=== PATIENT | male | born 1990 | race African-American/Black ===

== ENCOUNTER 2019-02-23 01:29 | Emergency (ER) | payer SELFPAY ==
--- NOTE | 2019-02-23 01:37 | PDOC ---
History of Present Illness - General Stated Complaint: FOUND LYING ON THE STREET Time Seen by Provider: 02/23/19 01:32 History Source: Patient Exam Limitations: No Limitations - History of Present Illness Initial Comments: 02/23/19 01:33 This is a 28-year-old male brought in by the EMS for evaluation. As per the EMS people patient was lying on the ground. When they approached him he said he was lying on the street but hadn't fallen or injured himself. Police felt that he initially was confused however in talking to him here it appears that he most likely did not want anyone to know why he was in the area and he most likely is undomiciled as the most recent address that the police were able to find [place]. Patient denies any headache, nausea, vomiting, diarrhea, chest pain, shortness of breath. Patient denies any complaints whatsoever. Patient said he lives in the area but will not give an address in the area. It is unclear whether he actually lives in the area or not. Patient denies any recent drug use, alcohol use or any complaints at this time. Patient initially refused to be evaluated in the agreed to be evaluated. Allergies: as per nursing notes Past Medical History: none Social history: Lives with family. No smoking. No alcohol. No illicit drugs. Surgical history: None General: No fevers or chills, no weakness, no weight loss HEENT: No change in vision. No sore throat,. No ear pain CardioVascular: no chest discomfort. No shortness of breath Respiratory:No cough, or wheezing. Gastrointestinal: no nausea, vomiting, diarrhea or constipation, No rectal bleeding Genitourinary: No dysuria, hematuria, or frequency Musculoskeletal: No joint or muscle pain or swelling Neurologic: No headache, vertigo, dizziness or loss of consciousness Psychiatric: nor depression Skin: No rashes or easy bruising Endocrine: no increased thirst or abnormal weight change Allergic: no skin or latex allergy All other systems reviewed and normal Exam: General: Well-nourished well-developed individual, no acute distress HEENT: Throat: Normal, tonsils normal, no erythema or exudate Neck: Supple, no meningeal signs, no lymphadenopathy Eyes::Pupils equal reactive and round, extraocular motion intact Chest: Nontender to palpation Cardiac: S1-S2 normal, regular rate and rhythm, no murmurs rubs or gallops Respiratory: Lungs clear to auscultation bilateral Abdomen: Soft, nondistended, normal bowel sounds, there is no tenderness on palpation diffusely Extremities: Warm, dry, no cyanosis, clubbing, or edema Skin: No rashes Neuro: Alert and oriented x3, CN II - XII intact, nonfocal exam with normal strength, normal sensation, normal reflexes, normal gait, Psych: Normal mood and affect Assessment and plan: This is a 28-year-old male who was brought in by police for possible altered mental status however patient is alert and oriented 3 he is without complaints he is vague as to where he lives most likely because he is undomiciled and does not want to be in the system. Patient discharged and told to go home. Past History - Past Medical History Allergies/Adverse Reactions: Allergies Allergy/AdvReac Type Severity Reaction Status Date / Time No Known Allergies Allergy Verified 02/23/19 01:36 Home Medications: Ambulatory Orders NK [No Known Home Medication] 02/23/19 *DC/Admit/Observation/Transfer Diagnosis at time of Disposition: Examination - Discharge Dispostion Disposition: HOME Condition at time of disposition: Stable Decision to Admit order: No - Referrals - Patient Instructions Additional Instructions: Return to the emergency department immediately with ANY new, persistent or worsening symptoms. Continue any medications as previously prescribed by your physician. You should follow up with your primary doctor as soon as possible regarding today's emergency department visit. . Please make sure your doctor reviews the results of your emergency evaluation. Thank you for coming to the Emergency Department today for your care. It was a pleasure to see you today. Please note that your evaluation is INCOMPLETE until you follow-up with your doctor. - Post Discharge Activity
[2019-02-23 01:40] VITALS: BP 110/74; PULSE 68; TEMP 98.2; BMI 28.3
== END 2019-02-23 02:11 ==
LOC: FER 01:29
DX: Z00.00 Encounter for general adult medical examination without abnormal findings (principal)
CPT/HCPCS: 99281-25

== ENCOUNTER 2019-02-27 15:58 | Emergency (ER) | payer SELFPAY ==
[2019-02-27 16:07] VITALS: BP 108/60; PULSE 80; TEMP 98.3; BMI 28.0
--- NOTE | 2019-02-27 16:11 | PDOC ---
History of Present Illness - General Chief Complaint: Heat Exhaustion Stated Complaint: AMS Time Seen by Provider: 02/27/19 16:10 - History of Present Illness Initial Comments: Butch Sheehan is a 28yo homeless man with no known medical history who was brought to the ED by EMS after he was found sleeping outside behind a school. Mr Sheehan currently has no complaints, and he states that he was sleeping outside because he had no other place to go. He currently reports that he is "just chillin" and that he does not need to be in the hospital. He denies fevers , chills, any pain, poor PO intake, or drug/alcohol use. Past History - Past Medical History Allergies/Adverse Reactions: Allergies Allergy/AdvReac Type Severity Reaction Status Date / Time No Known Allergies Allergy Verified 02/27/19 16:08 Home Medications: Ambulatory Orders NK [No Known Home Medication] 02/23/19 COPD: No - Suicide/Smoking/Psychosocial Hx Smoking History: Never smoked Have you smoked in the past 12 months: Yes Number of Cigarettes Smoked Daily: 5 'Breaking Loose' booklet given: 02/23/19 Hx Alcohol Use: No Drug/Substance Use Hx: No Review of Systems - Review of Systems Comments:: General: No fevers, no chills, no weight or appetite change, no malaise HEENT: No changes in vision, no changes in hearing, no congestion, no sore throat CV: No chest pain, no palpitations, no LE edema Pulm: No SOB, no cough, no wheezing GI: No nausea or vomiting, no change in bowel habits, no melena : No frequency, no urgency, no dysuria Musc: No back pain, no joint swelling, no recent injury Skin: No rash, no lesions, no erythema Endo: No excessive thirst, no heat/cold intolerance Heme: No unusual bruising or bleeding, no swollen glands Neuro: No syncope, no numbness/tingling, no focal weakness Vasc: No claudication Psych: No recent change in mood, no SI or HI *Physical Exam - Vital Signs Last Vital Signs Temp Pulse Resp BP Pulse Ox 98.3 F 80 16 108/60 95 02/27/19 16:04 02/27/19 16:04 02/27/19 16:04 02/27/19 16:04 02/27/19 16:04 - Physical Exam Comments: General: Comfortable, no acute distress, clothing dirty HEENT: PERRL, EOMI, MMM, voice normal, normal neck ROM Cards: RRR, no murmur appreciated Pulm: Comfortable on room air, clear to auscultation bilaterally Abd: Soft, nontender, nondistended : No CVA tenderness Ext: Atraumatic. No LE edema. ROM intact. Thick calluses on b/l feet Vasc: Extremities WWP Skin: Normal color, no rashes or lesions Neuro: A&Ox3, CN grossly intact, normal speech, motor/sensory grossly intact and symmetric Psych: Mood appropriate to situation Medical Decision Making - Medical Decision Making 02/27/19 16:22 Butch Sheehan is a 28yo homeless man with no known medical history who was brought to the ED by EMS after he was found sleeping outside behind a school. He has no complaints, normal vitals, and no concerning findings on physical exam. - Appears well, no sign of elevated temperature despite temps outside - Due to heat, will have social work see Mr Sheehan prior to discharge to recommend shelters 02/27/19 16:33 - Provided information on homeless shelters by social work. - Will discharge Discussed with Dr Davidson. Ria Leon PGY2 *DC/Admit/Observation/Transfer Diagnosis at time of Disposition: Homeless - Discharge Dispostion Disposition: HOME Condition at time of disposition: Stable Decision to Admit order: No - Referrals Referrals: [facility] [place] [facility] [place] [Provider Group] - Patient Instructions Printed Discharge Instructions: DI for Heat Exhaustion and Heat Stroke Additional Instructions: Discharge Instructions: You were seen in the ED after being found sleeping outside. It is strongly recommended that you present to a homeless [place] [facility] care facility to stay out of the heat. Please refer to the paperwork provided by the community mental health social worker. You have been referred to the [facility] clinic to establish medical care. Please make an appointment within the next 1-2 weeks. - Post Discharge Activity
--- NOTE | 2019-02-27 16:31 | PDOC ---
Documentation entered by Mehnaz Jones SCRIBE, acting as scribe for Deborah Davidson MD. Deborah Davidson MD: This documentation has been prepared by the alexibeRobert Adrianna, SCRIBE, under my direction and personally reviewed by me in its entirety. I confirm that the documentation accurately reflects all work, treatment, procedures, and medical decision making performed by me. Attending Attestation - Resident Resident Name: CarolynRia - ED Attending Attestation I have performed the following: I have examined & evaluated the patient, The case was reviewed & discussed with the resident, I agree w/resident's findings & plan, Exceptions are as noted - HPI HPI: The patient is a 28 year old male, with no significant PMH, who was BIBA found lying on the ground outside. Patient states he was sleeping behind a school because he had no other place to go. He denies any complaints while in the ED. Allergies: NKA, NKDA Surgical History: None reported Social History: Homeless. Denies EtOH or illicit drug use 02/27/19 16:32 - Physicial Exam PE: GENERAL: Awake, alert, and fully oriented, in no acute distress HEAD: No signs of trauma EYES: PERRLA, EOMI, sclera anicteric, conjunctiva clear ENT: Auricles normal inspection, hearing grossly normal, nares patent, oropharynx clear without exudates. Moist mucosa NECK: Normal ROM, supple, no lymphadenopathy, JVD, or masses LUNGS: Breath sounds equal, clear to auscultation bilaterally. No wheezes, and no crackles HEART: Regular rate and rhythm, normal S1 and S2, no murmurs, rubs or gallops ABDOMEN: Soft, nontender, normoactive bowel sounds. No guarding, no rebound. No masses EXTREMITIES: Normal range of motion, no edema. No clubbing or cyanosis. No cords, erythema, or tenderness NEUROLOGICAL: Cranial nerves II through XII grossly intact. Normal speech, normal gait. Motor and sensation intact SKIN: Warm, Dry, normal turgor, no rashes or lesions noted. - Medical Decision Making Pt denies any complaints at [facility], brought in by EMS after found outside. However, he is undomiciled and was sleeping outside. He denies overheating. He has no complaints at all. He does state that he would like information for local shelters so he has a place to stay.
== END 2019-02-27 16:39 | disposition home or self-care (01) ==
LOC: JER 15:58
DX: Z59.0 Homelessness (principal)
CPT/HCPCS: 99283-25